=== PATIENT | female | born 1950 | race Caucasian/White ===

== ENCOUNTER 2017-01-01 12:56 | Outpatient (CLI) | payer MEDICARE, OTHER ==
[2013-10-18 11:02] VITALS: BP 140/77
[2017-01-01] MEDS ORDERED: DENOSUMAB 60 MG/ML ML SQ ONE (13:00)
[2017-01-01] MEDS ORDERED: DENOSUMAB 60 MG/ML ML SQ SCH (13:00)
== END 2017-01-01 12:57 ==
LOC: INF 12:56
PROVIDERS: ATTEND Nurse Practitioner Family
DX: M81.0 Age-related osteoporosis without current pathological fracture (principal)
CPT/HCPCS: 96372; J0897

== ENCOUNTER 2017-04-13 10:11 | Emergency (ER) | payer MEDICARE, OTHER ==
[2017-04-13] MEDS ORDERED: ONDANSETRON HCL/PF 4 MG/ 2ML VIAL IVP ONE (10:33)
[2017-04-13] MEDS ORDERED: 0.9 % SODIUM CHLORIDE 1,000 ML IV ONE (10:33)
--- NOTE | 2017-04-13 10:48 | ED Physician Documentation ---
Upper Respiratory Symptoms - HISTORIAN Historian: patient - HPI Chief Complaint: Upper Respiratory Symptoms Onset: days ago () Associated Symptoms: chills, runny nose Further Comments: yes (66 year old patient presents with complaint of ear aches and intermittent nausea since . Patient reports grandchildren had "bronchitis". States Friday afternoon she began having cough, body aches and chills.) - ROS CONST/EYES: denies: weakness, eye redness, eye itching, other CVS/RESP: none LYMPH: denies: leg swelling, rash, swollen glands, ankle swelling, other GI/: none NEURO/PSYCH: denies: fainting, dizziness, confusion, anxiety, depression, other MS/SKIN: denies: joint pain, muscle aches, rash, other - PAST HX Lung Disease: none PE Risk Factors: hypertension Allergies/Adverse Reactions: Allergies Allergy/AdvReac Type Severity Reaction Status Date / Time No Known Allergies Allergy Verified 04/13/17 11:09 Home Medications: Ambulatory Orders Medication Instructions Recorded Dexlansoprazole [Dexilant] 04/13/17 - SOCIAL HX Smoking History: non-smoker - FAMILY HX Family History: none - VITAL SIGNS Vital Signs: Vital Signs Temp Pulse Resp BP Pulse Ox 99 F 107 H 16 166/79 95 04/13/17 10:20 04/13/17 10:20 04/13/17 10:20 04/13/17 10:20 04/13/17 10:20 - REVIEWED ASSESSMENTS Nursing Assessment Reviewed: Yes Vitals Reviewed: Yes Progress - Progress Progress: Educated patient on cause of bronchits - viral illness. Explained antibiotics would not help a viral illness. Will swab for influenza. Influenza B positive - reviewed discharge instructions and medications with patient, verbalized understanding. ED Results Lab/Radiology - Lab Results Lab Results: Lab Results 04/13/17 11:05 Influenza A (Rapid) Negative (NEGATIVE) Influenza B (Rapid) Positive H (NEGATIVE) - Orders Orders: ED Orders Category Date Time Status Place IV Lock 1T Care 04/13/17 10:33 Inactive INFLUENZA A&B Stat Lab 04/13/17 11:05 Completed 0.9 % Sodium Chloride [Normal Saline] 1,000 ml Med 04/13/17 10:33 Discontinued IV NOW Acetaminophen [Tylenol Extra Strength] Med 04/13/17 11:11 Discontinued 1,000 mg PO NOW ONE Benzonatate [Tessalon] Med 04/13/17 11:11 Discontinued 200 mg PO NOW ONE Ibuprofen [Advil] Med 04/13/17 11:11 Discontinued 600 mg PO NOW ONE Ondansetron HCl/Pf [Zofran 4 mg/2 ml] Med 04/13/17 10:33 Discontinued 4 mg IVP NOW ONE Upper Respiratory Symptoms - EXAM General Appearance: mild distress EENT: eyes nml inspection, nml ENT inspection, lids & conjunct. nml, PERRL, ear nml, rhinorrhea, pharynx nml, airway nml. No: pain over sinuses, frontal, maxillary, ethmoid Respiratory: no resp. 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 A virus cannot be treated with antibiotics. Rest Have plenty of sleep and rest. Stay away from others while you have a cold or flu. Take simple painkillers Such as Tylenol or ibuprofen, to help relieve headaches, muscles aches and pains and fever. Keep hydrated (drink plenty of fluids) This will help keep your throat moist and replace fluid lost due to a fever and sweating. Plenty of water is best. Avoid caffeine and alcohol as they will make you more dehydrated. Eat soft food If you have a sore throat soft foods are easier to swallow. Foods such as chicken soup may help a sore throat and reduce mucous (sticky fluid). make up artist an over the counter decongestant such as pseudoped, dayquil and Nyquil at your pharmacy. You may want to try Vicks rub on your chest and/or feet. ( Caution: Dayquil and Nyquil contain 325mg of Tylenol/acetaminophen per tablespoon) Cough drops as needed for cough and sore throat. Increase your fluid intake juices, hot tea, non-caffeinated beverages Vitamin C may be helpful in decreasing the length of your cold. Use a humidifier in the room where you sleep. You can also sit in a steam filled bathroom 1-2 times a day. Tylenol every 4 hours 650mg -1000mg (do not exceed 4000mg in 24 hours) as needed for fever, pain and body aches. Alternate with Ibuprofen Ibuprofen 600-800mg every 6 hours as needed for fever, pain and body aches. See your primary care doctor if your symptoms become worse or do not improve in the next 3-4 days. Condition: Stable Disposition: 01 HOME, SELF-CARE Decision to Admit: NO Decision Time: 11:18
[2017-04-13] MEDS ORDERED: ACETAMINOPHEN 500 MG TABLET PO ONE (11:11)
[2017-04-13] MEDS ORDERED: BENZONATATE 100 MG CAPSULE PO ONE (11:11)
[2017-04-13] MEDS ORDERED: IBUPROFEN 200 MG TABLET PO ONE (11:11)
[2017-04-13 13:24] VITALS: BP 136/80
== END 2017-04-13 10:33 | disposition home or self-care (01) ==
LOC: ED 10:11
DX: J11.1 Influenza due to unidentified influenza virus with other respiratory manifestations (principal)
CPT/HCPCS: 87400; 99282; A9270

== ENCOUNTER 2018-10-12 17:41 | Emergency (ER) | payer MEDICARE, OTHER ==
[2018-10-12] MEDS ORDERED: KETOROLAC TROMETHAMINE 30 MG/1ML VIAL IVP ONE (18:01)
[2018-10-12] MEDS ORDERED: 0.9 % SODIUM CHLORIDE 1,000 ML IV ONE (18:01)
[2018-10-12] MEDS ORDERED: ONDANSETRON HCL/PF 4 MG/ 2ML VIAL IVP ONE (18:01)
[2018-10-12 18:10] LABS: BASOPHILS % 0.4 % (0.0-1.5); NEUTROPHILS # 4.1 # k/uL (1.4-7.7)
[2018-10-12 18:23] LABS: eGFR (Non-African) > 60
[2018-10-12] MEDS ORDERED: TAMSULOSIN HCL 0.4 MG CAP.ER.24H PO ONE (20:13)
--- NOTE | 2018-10-12 20:49 | ED Physician Documentation ---
Flank Pain - HISTORIAN Historian: patient - HPI Stated Complaint: L flank pain, Nausea Chief Complaint: Flank Pain Onset: days ago (2) Duration: constant Timing: worse Context: denies: out of country travel, bad food, recent trauma Severity: severe Quality: pain Associated Symptoms: nausea Exacerbated by: nothing Relieved by: nothing Further Comments: yes (68 year old female patient presents with left flank pain x 2 days accompanied by nausea. Patient reports recent UTI and remote history of kidney stone. Reports pain radiating to "side.") - ROS CONST: recent illness (UTI) GI/: none CVS/RESP: none EYES/ENT: none MS/SKIN/LYMPH: none NEURO/PSYCH: none - SOCIAL HX Smoking History: non-smoker - FAMILY HX Family History: denies: none - PAST HX Past History: kidney stones, other (GERD) Other History: hypertension, other (hypothyroid, GERD) Surgeries/Procedures: other (1970 - left ureter; stone removal.) Allergies: NKDA - VITAL SIGNS Vital Signs: Vital Signs Temp Pulse Resp BP Pulse Ox 98.5 F 74 16 197/95 95 10/12/18 17:41 10/12/18 17:41 10/12/18 17:41 10/12/18 17:41 10/12/18 17:41 - REVIEWED ASSESSMENTS Nursing Assessment Reviewed: Yes Vitals Reviewed: Yes Progress - Progress Progress: Patient states she feels better after toradol Reviewed CT results with patient and , FLomax started in ER. Reviewed discharge instructions, questions answered. ED Results Lab/Radiology - Lab Results Lab Results: Lab Results 10/12/18 10/12/18 18:01 18:01 WBC 5.90 K/ul K/ul (4.00-12.00) RBC 4.59 M/ul M/ul (3.90-5.20) Hgb 13.8 g/dL g/dL (11.5-16.0) Hct 41.2 % % (34.5-46.5) MCV 90.0 fl fl (80.0-100.0) MCH 30.1 pg pg (28.0-34.0) MCHC 33.5 g/dL g/dL (30.0-36.0) RDW 13.6 % % (11.3-14.3) Plt Count 137 K/mm3 K/mm3 (130-400) Neut % (Auto) 69.5 % % (39.0-79.0) Lymph % (Auto) 19.7 % % (16.0-50.0) Yell % (Auto) 8.0 % % (0.0-11.0) Eos % (Auto) 2.4 % % (0.0-6.8) Baso % (Auto) 0.4 % % (0.0-1.5) Neut # (Auto) 4.1 # k/uL # k/uL (1.4-7.7) Lymph # (Auto) 1.2 # k/uL # k/uL (0.6-4.0) Yell # (Auto) 0.5 # k/uL # k/uL (0.0-0.9) Eos # (Auto) 0.1 # k/uL # k/uL (0.0-0.6) Baso # (Auto) 0.0 # k/uL # k/uL (0.0-0.5) Sodium 139 mmol/L mmol/L (137-145) Potassium 3.7 mmol/L mmol/L (3.5-5.1) Chloride 103 mmol/L mmol/L (98-107) Carbon Dioxide 28 mmol/L mmol/L (22-30) BUN 28 mg/dL H mg/dL (7-17) Creatinine 0.79 mg/dL mg/dL (0.52-1.04) Est GFR ( Amer) > 60 (60 - ) Est GFR (Non-Af Amer) > 60 (60 - ) Glucose 114 mg/dL H mg/dL (74-106) Calcium 9.1 mg/dL mg/dL (8.4-10.2) Total Bilirubin 0.3 mg/dL mg/dL (0.2-1.3) AST 40 U/L U/L (15-46) ALT 30 U/L U/L (13-69) Alkaline Phosphatase 77 U/L U/L (38-126) Total Protein 7.0 g/dL g/dL (6.3-8.2) Albumin 4.4 g/dL g/dL (3.5-5.0) - Radiology Radiology Impressions: CT abdomen and pelvis without IV contrast Clinical history: Left flank pain and hematuria 8 cm hiatal hernia. Most of the stomach is herniated into lower thorax. 1 cm cyst of the right lobe of the liver. Calcified gallstone. Extrarenal pelvis right and left. Left hydronephrosis and left hydroureter with about 4 x 6 mm calculus in the distal left ureter almost the left ureterovesical junction. Punctate 1 mm calcification in the right and left kidney. No bowel obstruction. Moderate diverticulosis of sigmoid colon. Impression: Large hiatal hernia 1 cm cyst of the right lobe of the liver 4 x 6 mm calculus almost of the left ureterovesical junction with moderate left hydronephrosis and left hydroureter Punctate 1 mm stones and in the right and left kidney Calcified gallstone Moderate diverticulosis of sigmoid colon Electronically signed on Oct 12, 2018 8:05:12 PM CDT by: Alfonso Jones - Orders Orders: ED Orders Category Date Time Status CT ABD & PELVIS W/O CON Stat Exams 10/12/18 Taken CBC/PLATELET/DIFF Stat Lab 10/12/18 18:01 Completed CMP Stat Lab 10/12/18 18:01 Completed UA W/MICRO IF INDICATED Stat Lab 10/12/18 18:01 Ordered 0.9 % Sodium Chloride [Normal Saline] 1,000 ml Med 10/12/18 18:01 Discontinued IV NOW Ketorolac Tromethamine [Toradol] Med 10/12/18 18:01 Discontinued 30 mg IVP NOW ONE Ondansetron HCl/Pf [Zofran] Med 10/12/18 18:01 Discontinued 4 mg IVP NOW ONE Tamsulosin HCl [Flomax] Med 10/12/18 20:13 Discontinued 0.4 mg PO NOW ONE Abdominal Pain Physical Exam - Physical Exam General Appearance: moderate distress EENT: eye inspection normal, JENNIFER RESPIRATORY: no resp distress, chest non-tender, breath sounds normal CVS: reg rate & rhythm, heart sounds normal, equal pulses, no murmur, no gallop, PMI nml, no JVD, no friction rub, 24 ABDOMEN: soft, no organomegaly, normal bowel sounds, no abdominal bruit, no distension BACK: normal inspection, CVA tenderness (L) SKIN: normal color, warm/dry, NR, INT, PAL, DR EXTREMITIES: non-tender, normal range of motion, no evidence of injury, no edema, J, 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 Increase your fluid intake to at least 64 oz of water a day Strain all urine. If the stone is passed, place it in a specimen cup and take it to your primary care physician for analysis. Alternate with Ibuprofen 600-800mg three times a day with food as needed. Do not take for more than 5 days in a row. You may use Tylenol every 4hour as needed for pain. Limit your dose to less than 4 G per day. Make a follow up appointment with Henry Obrien for Friday. Condition: Stable Disposition: 01 HOME, SELF-CARE Decision to Admit: NO Decision Time: 20:49
[2018-10-12 21:12] VITALS: BP 155/97
--- NOTE | 2018-10-13 06:38 | Diagnostic Imaging Report ---
HOLDEN NEWMAN (HOOKER OPERATOR) - ER [facility] [address] [facility].[address] [id number] Report Submission Date: Oct 12, 2018 8:05:12 PM CDT Patient Study Name: RUIZ MELGOZA Date: Oct 12, 2018 7:07:12 PM CDT Modality Type: CT\SR Gender: F Description: : 52 Institution: [facility] Physician: HOLDEN NEWMAN (HOOKER OPERATOR) - ER CT abdomen and pelvis without IV contrast Clinical history: Left flank pain and hematuria 8 cm hiatal hernia. Most of the stomach is herniated into lower thorax. 1 cm cyst of the right lobe of the liver. Calcified gallstone. Extrarenal pelvis right and left. Left hydronephrosis and left hydroureter with about 4 x 6 mm calculus in the distal left ureter almost the left ureterovesical junction. Punctate 1 mm calcification in the right and left kidney. No bowel obstruction. Moderate diverticulosis of sigmoid colon. Impression: Large hiatal hernia 1 cm cyst of the right lobe of the liver 4 x 6 mm calculus almost of the left ureterovesical junction with moderate left hydronephrosis and left hydroureter Punctate 1 mm stones and in the right and left kidney Calcified gallstone Moderate diverticulosis of sigmoid colon Electronically signed on Oct 12, 2018 8:05:12 PM CDT by: Alfonso SOLIS
[2018-10-13 07:54] LABS: APPEARANCE,URINE CLEAR (CLEAR); COLOR,URINE YELLOW (YELLOW); OCCULT BLOOD,URINE 2+ (NEGATIVE); UROBILINOGEN URINE 0.2 Eu (0.2-1.0)
== END 2018-10-12 21:10 | disposition home or self-care (01) ==
LOC: ED 17:41
DX: K44.9 Diaphragmatic hernia without obstruction or gangrene (principal); N20.0 Calculus of kidney
CPT/HCPCS: 74176; 80053; 81002; 85025; 96372; 99283; 99284; J1885; J2405; J7030; S1016

== ENCOUNTER → 2019-04-22 | Outpatient (CLI) | payer MEDICARE, OTHER ==
[~2019-04-22] MED LIST: DENOSUMAB (NF) 60 MG/ML SYRINGE SQ ONE
== END ==
LOC: INF 11:03
PROVIDERS: ATTEND Nurse Practitioner Family
DX: M81.0 Age-related osteoporosis without current pathological fracture (principal)
CPT/HCPCS: J0897